=== PATIENT | female | born 1980 | race Caucasian/White ===

== ENCOUNTER 2022-02-17 07:18 | Emergency (ER) | payer BC ==
--- OUTSIDE RECORDS SUMMARY | 2022-02-17 07:22 | XMS REPORT | Continuity of Care Document ---
:[address] [facility] t Address [address] [place] [address] Care Team Providers Name Role Phone Carissa Davila MD Primary Care Physician Carissa Davila Attending Clinician Unavailable Carissa Davila Attending Clinician Unavailable Renato Steward Attending Clinician Unavailable Pepe Tello Attending Clinician Unavailable Payers Payer Name Policy Type Policy Number Effective Date Expiration Date S yannick Blue Cross C1 [id number] [facility] ([facility]) Outpatient Clinics Problems Condition Condition Condition Status Onset Resolution Last Treating Co mments Source Name Details Category Date Date Treatment Clinician Date Dyspnea on Dyspnea on Disease Active M ethodi exertion exertion 10-20 00:00: Hospita 00 l Lumbar Lumbar Disease Active [facility] stenosis stenosis 10-17 00:00: Hospita 00 l Lumbar Lumbar Disease Active [facility]i radiculopa radiculopa 08-21 thy thy 00:00: Hospita 00 l Other Other Disease Active Methodi spondylosi spondylosi 08-21 s with s with 00:00: Hospita radiculopa radiculopa 00 l thy, thy, lumbar lumbar region region [id number] History of Problem Active [facility] St (urinary Robert tract Outpati infection) ent Clinics [id number] Migraine Problem Active [facility] with aura [facility] without Robert status Outpati migrainosu ent s, not Clinics intractabl e [id number] Dysmenorrh Problem Active [facility] medical center ent Clinics Allergies, Adverse Reactions, Alerts Allergy Allergy Status Severity Reaction(s) Onset Inactive Treating Comm ents Source Name Type Date Date Clinician Lidia Propensi Active Swelling Nausea, Met hodi m ty to [address] adverse 00:00: swelling Hospita reaction 00 l s to drug Penicill Propensi Active Itching, Meth autumn ins ty to 07-10 rash, st adverse 00:00: hives Hospita reaction 00 l s to drug meloxica meloxica Active swelling [facility] m m (can [facility] - tolerate other Robert NSAIDS) [facility] Clin[facility] Family History Family Member Diagnosis Comments Start Date Stop Date Source Natural mother Heart disease [facility] mother Hypertension [facility] Natural mother Kidney disease [facility] Natural mother Lupus [facility] mother Seizures [facility] Natural mother Breast cancer [facility] Natural mother Clotting disorder Met [facility] Natural mother Diabetes [facility] Natural father Heart disease [facility] father Hypertension [facility] father Skin cancer [facility] Social History Social Habit Start Date Stop Date Quantity Comments Source History of [facility] Tobacco Use [facility] Alcohol intake 2018-06-23 2018-06-23 [facility] 00:00:00 00:00:00 non-drinker of alcohol (finding) Tobacco use and 2017-07-10 2017-07-10 Smokeless tobacco [facility] exposure 00:00:00 00:00:00 non-user Sex Assigned At [birth year] [facility] 00:00:00 00:00:00 Smoking Status Start Date Stop Date Source Never Smoker [facility] Outpatient Clinics Medications Ordered Filled Start Stop Current Ordering Indication Dosage Frequency Signature Comments Components Source Medication Medication Date Date Medication? Clinician (SIG) Name Name Oxybutynin Oxybutynin No 1{table BID Oxybutynin Chloride 5 Chloride 5 4-14 t} Chloride 5 MG MG 00:00: MG 00 Oxybutynin Oxybutynin No 1{table BID Oxybutynin Chloride 5 Chloride 5 4-14 t} Chloride 5 MG MG 00:00: MG 00 Oxybutynin Oxybutynin No 1{table BID Oxybutynin Chloride 5 Chloride 5 4-14 t} Chloride 5 MG MG 00:00: MG 00 Oxybutynin Oxybutynin No 1{table BID Oxybutynin Chloride 5 Chloride 5 4-14 t} Chloride 5 MG MG 00:00: MG 00 Macrobid Macrobid No 1{capsu BID Macrobid [facility] 100 MG 100 MG 4-06 le_with 100 MG [facility] - 00:00: _food} [facility] Macrobid Macrobid No 1{capsu BID Macrobid 100 MG 100 MG 4-06 le_with 100 MG 00:00: _food} Macrobid Macrobid No 1{capsu BID Macrobid 100 MG 100 MG 4-06 le_with 100 MG 00:00: _food} Macrobid Macrobid No 1{capsu BID Macrobid 100 MG 100 MG 4-06 le_with 100 MG 00:00: _food} Macrobid Macrobid No 1{capsu BID Macrobid 100 MG 100 MG 4-06 le_with 100 MG 00:00: _food} Medrol Medrol 2018-03 Yes Carissa as [facility] 2-05 Davila directed [facility] - 00[facility] St 00 [facility] Bactrim DS Bactrim DS 2018-03 Yes Carissa [address] 1-25 Davila [facility] - [facility] 00 [facility] SUMAtriptan Yes 100mg Take 100 M ethodi (IMITREX) 4-[address] 100 MG 12:24: mouth once Hospi ta tablet 21 as needed l for migraine. May repeat in 2 hours if unresolved . Do not exceed 200 mg in 24 hours. levocetiriz Yes 5mg QD Take 5 mg M ethodi ine (XYZAL) 4-[address] 5 MG tablet 12:24: every Hospi ta 21 evening. l As needed naproxen Yes Take by Method i sodium 4-[address] (ALEVE 12:24: Hospita ORAL) 21 l methocarbam Yes Take 1 Meth autumn ol 8-[address] (ROBAXIN-75 00:00: every 6 Hos kristina 0) 750 MG 00 hours as l tablet needed for spasms ULTRAM 50 Yes 50mg Q6H Take 50 mg Me thodi mg tablet 2-[address] 00:00: every 6 Hospita 00 (six) l hours as needed. ondansetron Yes 8mg Q8H Take 8 mg M ethodi (ZOFRAN) 8 1-[address] MG tablet 00:00: every 8 Hospi ta 00 (eight) l hours as needed for nausea or vomiting. Methocarbam Methocarbam Yes Carissa [address] ol ol Davila [facility] Systane Systane Yes Carissa not [facility] Davila defined [facility] Tramadol Tramadol Yes Carissa 1-[address] HCl HCl Davila tablets as [facility]ukes - needed [facility] Fexmid Fexmid Yes Carissa [address] Davila as needed [facility] Sumatriptan Sumatriptan Yes Carissa TK [address] Succinate Succinate Davila BID PRF Lukes - MIGRAINE [facility] Leslie Nelson Yes Carissa [address] Allergy Allergy Davila in the Amari es - 24HR 24HR evening [facility] Tylenol Tylenol Yes Carissa [address] Davila as needed [facility] Advil Advil Yes Carissa 4-[address] Davila tablets [facility] - with food St or milk as Robert [facility] Systane Systane No Systane [facility] 0.4-0.3 % 0.4-0.3 % 0.4-0.3 % [facility] Xymaryl Ramseyzal No 1{table QD Xyzal [facility] Allergy Allergy t_in_th Allergy Amari es - 24HR 5 MG 24HR 5 MG e_eveni 24HR [address] ng} [facility] AZO AZO No AZO [facility] cranberry cranberry cranberry [facility] Sumatriptan Sumatriptan No Sumatripta [facility] Succinate Succinate n [facility]ukes - 100 MG [address] 100 MG [facility] Advil 200 Advil 200 No Advil [address] mg mg mg [facility] Methocarbam Methocarbam No 1{table Methocarba [facility] ol 750 MG ol 750 MG t} mol 750 MG [facility] Systane Systane No Systane 0.4-0.3 % 0.4-0.3 % 0.4-0.3 % Xyzal Xyzal No 1{table QD Xyzal Allergy Allergy t_in_th Allergy 24HR 5 MG 24HR 5 MG e_eveni 24HR 5 MG ng} AZO AZO No AZO cranberry cranberry cranberry Sumatriptan Sumatriptan No Sumatripta Succinate Succinate n 100 MG 100 MG Succinate 100 MG Advil 200 Advil 200 No Advil 200 mg mg mg Methocarbam Methocarbam No 1{table Methocarba ol 750 MG ol 750 MG t} mol 750 MG Systane Systane No Systane 0.4-0.3 % 0.4-0.3 % 0.4-0.3 % Xyzal Xyzal No 1{table QD Xyzal Allergy Allergy t_in_th Allergy 24HR 5 MG 24HR 5 MG e_eveni 24HR 5 MG ng} AZO AZO No AZO cranberry cranberry cranberry Sumatriptan Sumatriptan No Sumatripta Succinate Succinate n 100 MG 100 MG Succinate 100 MG Advil 200 Advil 200 No Advil 200 mg mg mg Methocarbam Methocarbam No 1{table Methocarba ol 750 MG ol 750 MG t} mol 750 MG Systane Systane No Systane 0.4-0.3 % 0.4-0.3 % 0.4-0.3 % Xyzal Xyzal No 1{table QD Xyzal Allergy Allergy t_in_th Allergy 24HR 5 MG 24HR 5 MG e_eveni 24HR 5 MG ng} AZO AZO No AZO cranberry cranberry cranberry Sumatriptan Sumatriptan No Sumatripta Succinate Succinate n 100 MG 100 MG Succinate 100 MG Advil 200 Advil 200 No Advil 200 mg mg mg Methocarbam Methocarbam No 1{table Methocarba ol 750 MG ol 750 MG t} mol 750 MG Systane Systane No Systane 0.4-0.3 % 0.4-0.3 % 0.4-0.3 % Xyzal Xyzal No 1{table QD Xyzal Allergy Allergy t_in_th Allergy 24HR 5 MG 24HR 5 MG e_eveni 24HR 5 MG ng} AZO AZO No AZO cranberry cranberry cranberry Sumatriptan Sumatriptan No Sumatripta Succinate Succinate n 100 MG 100 MG Succinate 100 MG Advil 200 Advil 200 No Advil 200 mg mg mg Methocarbam Methocarbam No 1{table Methocarba ol 750 MG ol 750 MG t} mol 750 MG Immunizations Ordered Filled Immunization Date Status Comments [facility] e Immunization Name Name COVID-19 (Moderna) COVID-19 (Moderna) 2020-04-[address] [facility] 10[facility]32[facility] COVID-19 (Moderna) COVID-19 (Moderna) 2020-04-[address] [facility] 10:32:00 [facility] COVID-19 (Moderna) COVID-19 (Moderna) 2020-04-[address] [facility] 10:32:00 [facility] COVID-19 (Moderna) COVID-19 (Moderna) 2020-04-[address] [facility] 10:32:00 [facility] COVID-19 (Moderna) COVID-19 (Moderna) 2020-04-[address] [facility] 10:32:00 [facility] COVID-19 (Moderna) COVID-19 (Moderna) 2020-03-[address] [facility] 10[facility]31[facility]00 [facility] COVID-19 (Moderna) COVID-19 (Moderna) 2020-03-[address] [facility] 10:31:00 [facility] COVID-19 (Moderna) COVID-19 (Moderna) 2020-03-[address] [facility] 10:31:00 [facility] COVID-19 (Moderna) COVID-19 (Moderna) 2020-03-[address] [facility] 10:31:00 [facility] COVID-19 (Moderna) COVID-19 (Moderna) 2020-03-[address] [facility] 10:31:00 [facility] Flu Quadrivalent PF Flu Quadrivalent PF 2018-12-[address] [facility] 0.5 ml IM 0.5 ml IM 10:16:00 [facility] Flu Quadrivalent PF Flu Quadrivalent PF 2018-12-[address] [facility] 0.5 ml IM 0.5 ml IM 10:16:00 [facility] Flu Quadrivalent PF Flu Quadrivalent PF 2018-12-[address] [facility] 0.5 ml IM 0.5 ml IM 10:16:00 [facility] Flu Quadrivalent PF Flu Quadrivalent PF 2018-12-[address] [facility] 0.5 ml IM 0.5 ml IM 10:16:00 [facility] Flu Quadrivalent PF Flu Quadrivalent PF 2018-12-[address] [facility] 0.5 ml IM 0.5 ml IM 10:16:00 [facility] Flu Quadrivalent PF Flu Quadrivalent PF 2017-12-[address] [facility] 0.5 ml IM 0.5 ml IM 07:52:00 [facility] Flu Quadrivalent PF Flu Quadrivalent PF 2017-12-[address] [facility] 0.5 ml IM 0.5 ml IM 07:52:00 [facility] Flu Quadrivalent PF Flu Quadrivalent PF 2017-12-[address] [facility] 0.5 ml IM 0.5 ml IM 07:52:00 [facility] Flu Quadrivalent PF Flu Quadrivalent PF 2017-12-[address] [facility] 0.5 ml IM 0.5 ml IM 07:52:00 [facility] Flu Quadrivalent PF Flu Quadrivalent PF 2017-12-[address] [facility] 0.5 ml IM 0.5 ml IM 07:52:00 [facility] Depo-Medrol Depo-Medrol 2017-03-[address] [facility] (METHYLPREDnisolone (METHYLPREDnisolone 10:31:00 [facility] ) 80mg ) 80mg Clinics Depo-Medrol Depo-Medrol 2017-03-[address] [facility] (METHYLPREDnisolone (METHYLPREDnisolone 10:31:00 [facility] ) 80mg ) 80mg Clinics Depo-Medrol Depo-Medrol 2017-03-[address] [facility] (METHYLPREDnisolone (METHYLPREDnisolone 10:31:00 [facility] ) 80mg ) 80mg Clinics Depo-Medrol Depo-Medrol 2017-03-[address] [facility] (METHYLPREDnisolone (METHYLPREDnisolone 10:31:00 [facility] ) 80mg ) 80mg Clinics Depo-Medrol Depo-Medrol 2017-03-09 [address] [facility] (METHYLPREDnisolone (METHYLPREDnisolone 10:31:00 [facility] ) 80mg ) 80mg Clinics Vital Signs Vital Name Observation Time Observation Value Comments Source weight 2020-06-21 10:05:00 162.0 [lb_av] [facility] height 2020-06-21 10:05:00 69.0 [in_i] [facility] bmi 2020-06-21 10:05:00 23.92 kg/m2 [facility] heart rate 2020-06-21 10:05:00 88 /min [facility] temperature 2020-06-21 10:05:00 97.8 [degF] [facility] oximetry 2020-06-21 10:05:00 98 % [facility] respiratory rate 2020-06-21 10:05:00 18 /min [facility] blood pressure 2020-06-21 10:05:00 123 mm[Hg] [facility] systolic [facility] blood pressure 2020-06-21 10:05:00 88 mm[Hg] [facility] diastolic [facility] Procedures This patient has no known procedures. Plan of Care Planned Activity Planned Date Details Comments Source Future Scheduled 2022-01-21 [facility]ITIS [facility] 00:25:52 VACCINES (1 of 3 - 3-dose series) [code = HEPATITIS B VACCINES (1 of 3 - 3-dose series)] Future Scheduled 2022-01-21 COVID-19 [facility] Test 00:25:52 (#1) [code = COVID-19 VACCINE (#1)] Future Scheduled 2022-01-21 Screening for [facility] Test 00:25:52 malignant neoplasm of cervix (procedure) [code = 684305200] Future Scheduled 2022-01-21 BREAST CANCER [facility] Test 00:25:52 SCREENING [code = BREAST CANCER SCREENING] Future Scheduled 2022-01-21 INFLUENZA VACCINE [facility] Test 00:25:52 [code = INFLUENZA VACCINE] Encounters Start End Encounter Admission Attending Care Care Encounter Source Date/Time Date/Time Type Type Clinicians Facility Department ID 2021-04-12 Outpatient MIGNON Davila [facility] [id number] 12:48:16 Carissa [id number] [facility] 2021-04-12 Outpatient MIGNON Davila [facility] [id number] 11:17:49 Carissa [id number] [facility] 2020-07-15 2020-07-15 (TEL) STLS[facility]EL [facility] [id number] [facility] 00:[facility] 00:00:00 [facility] 2020-06-29 2020-06-29 (WEB) [facility] [id number] [facility] 00:[facility] 00:00:00 [facility] 2020-06-28 2020-06-28 (Lab) Lab [facility] [id number] [facility] 00[facility]00 visit [facility] 2020-06-27 2020-06-27 (TEL) STLS[facility]EL [facility] [id number] [facility] 00:[facility] 00:00:00 [facility] 2020-06-21 2020-06-21 Office [facility] [id number] [facility] 00:[facility]00 00:00:00 Visit, Andreas broussard - Pt., Level [facility] 3 [facility] ent Clinics 2019-07-03 2019-07-03 Outpatient [facility] [id number] 10:25:00 10:25:00 [facility] Clinics 2019-07-01 2019-07-01 Outpatient [facility] [id number] 08:10:00 08:10:00 [facility] Out[facility] Clinics 2019-06-30 2019-06-30 Outpatient [facility] [id number] 10:20:00 10:20:00 [facility] Outpat[facility] ent Clinics 2019-06-30 2019-06-30 Outpatient [facility] [id number] 08:17:00 08:17:00 [facility] 2019-06-29 2019-06-29 Outpatient [facility] [id number] 20:34:00 20:34:00 Family [facility] 2019-06-29 2019-06-29 Outpatient [facility] [id number] 10:30:00 10:30:00 [facility] 2019-06-29 2019-06-29 Outpatient [facility] [id number] 08:23:00 08:23:00 [facility] Clin[facility] 2018-05-05 2018-05-05 Outpatient Haily Davila [facility] [id number] 14:07:00 14:08:00 Carissa [id number] [facility] 2017-05-29 2017-05-29 Outpatient Haily Bin [facility] [id number] 08:03:00 08:04:00 Renato [id number] [facility] 2017-04-30 2017-04-30 Outpatient Haily Davila [facility] [id number] 08:38:00 08:39:00 Car[id number] [facility] 2017-04-18 2017-04-18 Emergency ER Omer [facility] [id number] 08:28:00 11:00:00 Pe[facility] -[id number] [facility] Results Test Description Test Time Test Comments Results Result Comments Source Hematology 2017-04-18 11:16:00 Test Item Value Reference Range Interpretation Comme nts Hematology (test code = WBCT) 3.3 thou/uL 4.8-10.8 L Hematology (test code = RBCT) 4.71 mill/uL 4.20-5.40 N Hematology (test code = HGBT) 14.6 g/dL 12.0-16.0 N Hematology (test code = HCTT) 43.8 % 36.0-47.0 N Hematology (test code = MCV) 93.0 fl 81.0-99.0 N Hematology (test code = MCH) 31.1 pg 27.0-31.0 H Hematology (test code = MCHC) 33.5 g/dL 32.0-36.0 N Hematology (test code = RDW) 12.1 % 11.5-14.5 N Hematology (test code = PLTT) 118 thou/uL 130-400 L Hematology (test code = MPV) 9.1 fL 7.4-10.4 N Hematology (test code = %NEUT) 65.9 % 42.0-75.0 N Hematology (test code = %LYMPH) 23.8 % 21.0-51.0 N Hematology (test code = %MONO) 9.0 % 0.0-10.0 N Hematology (test code = %EOS) 0.8 % 0.0-10.0 N Hematology (test code = %BASO) 0.5 % 0.0-1.0 N Hematology (test code = NEUT#) 2.2 thou/uL 1.40-6.50 N Hematology (test code = LYMPH#) 0.8 thou/uL 1.20-3.40 L Hematology (test code = MONO#) 0.3 thou/uL 0.11-0.59 N Hematology (test code = EOS#) 0.0 thou/uL 0.0-0.7 N Hematology (test code = BASO#) 0.0 thou/uL 0.0-0.2 N Hematology (test code = PCOMMENT) Appears Decreased A Hematology (test code = MC) Normal [id number] 09:39:00 Test Item Value Reference Range Interpretation Comments Chemistry (test code = LIP) 12 U/L 8-78 N [id number] 09:29:00 Test Item Value Reference Range Interpretation Comments Urinalysis (test Negative Negative Method of s ensitivity- code = BHCGUT) INDETERMINANT : results should be repea dominick after 48-72 hrs POSIT CARLOS: results may be detected as early as 1 day after the first missed period A dilute urine specimen may no t contain representativel evels of hCG.If pregnanc y is still suspected, a fi rst morning urinespecimen O R a random blood specimen should be obtainedfrom th e patient 48-72 hours lat er and re-tested. Urinalysis (test 1.011 1.002-1.036 N code = PREGUSG) [id number] 09:28:00 Test Item Value Reference Range Interpretation Comments Urinalysis (test code = UACLR) YELLOW Yellow Urinalysis (test code = UACLY) CLEAR Clear Urinalysis (test code = SPGR) 1.011 1.002-1.036 N Urinalysis (test code = LORNA) 6.0 5.0-9.0 N Urinalysis (test code = UALEU) Negative Negative Urinalysis (test code = UANIT) Negative Negative Urinalysis (test code = Negative mg/dL Neg-Trace PROUADIP) Urinalysis (test code = GLUCU) Negative mg/dL Negative Urinalysis (test code = KETU) Trace mg/dL Negative A Urinalysis (test code = 0.2 mg/dL 0.2-1.0 UAUROB) Urinalysis (test code = UABIL) Negative Negative Urinalysis (test code = UABLD) Negative Negative Urine Source: Urine Clean [id number] 09:21:00 Test Item Value Reference Range Interpretation Comments Chemistry (test code 138 mmol/L 136-145 N = NA-T) Chemistry (test code 4.1 mmol/L 3.5-5.1 N = K-T) Chemistry (test code 105 mmol/L 98-107 N = CL) Chemistry (test code 23 mmol/L 22-29 N = CO2) Chemistry (test code 14 mmol/L 10-20 N = ANGP) Chemistry (test code 9 mg/dL 7.0-18.7 N = BUN) Chemistry (test code 0.76 mg/dL 0.6-1.1 N = CREATT) Chemistry (test code 86 Referen ce Range for = EGFRMDRD) Estimated GFR: Greater than 90 mL/min/ 1.73 m2NOTE:The MDRD equation has no t been validated for u se with theelderly (ove r 70 years of age), women, patients with serious comorbi d condition or pe rsons with extremes o fbody size, muscle ma ss, or nutritional sta tus. Chemistry (test code 96 mg/dL 70-105 N = GLU-T) Chemistry (test code 9.7 mg/dL 7.8-10.44 N = CA) Chemistry (test code 1.4 mg/dL 0.2-1.2 H = TBILI) Chemistry (test code 7.4 g/dL 6.0-8.3 N = TP) Chemistry (test code 4.7 g/dL 3.5-5.0 N = ALB) Chemistry (test code 2.7 g/dL 2.4-3.5 N = GLOB) Chemistry (test code 1.7 g/dL 1.2-2.2 N = AG) Chemistry (test code 55 U/L 40-150 N = ALP) Chemistry (test code 18 U/L 5-34 N = AST) Chemistry (test code 19 U/L 8-55 N = ALT)
[2022-02-17] MEDS ORDERED: LIDOCAINE 1% MPF 5 ML VIAL ONE (07:47)
[2022-02-17] MEDS ORDERED: BUPIVACAINE 0.5% PF 10 ML VIAL ONE ×2 (07:47→07:50)
--- NOTE | 2022-02-17 08:31 | RAD REPORT ---
EXAM DESCRIPTION: RAD - Foot Left 3 View - 02/17/2022 7:53 am CLINICAL HISTORY: Left Foot pain FINDINGS: Transverse lucency proximal aspect of the fifth proximal phalanx equivocal for a nondispla facundo fracture. Mild lateral subluxation of the fourth and fifth middle phalanges could be acute or chronic and shoul d be correlated clinically
--- NOTE | 2022-02-17 08:47 | ER ---
Nurse's Notes [facility] Name: Arlet Hull Age: 42 yrs Sex: Female : 1980 Arrival Date: 02/17/2022 Time: 07:21 Bed 4 Private MD: Diagnosis: Fracture of proximal phalanx of lesser toe(s)- Presentation: 02/17 07:44 Chief complaint: Patient states: "I was on the way down the stairs this AM and fell jd3 down hitting my left foot pretty heard on the bars that line the spiral staircase. I made it to the restroom, but as soon as I stood up I passed out.". Coronavirus screen: At this time, the client does not indicate any symptoms associated with coronavirus-19. Ebola Screen: No symptoms or risks identified at this time. Initial Sepsis Screen: Does the patient meet any 2 criteria? No. Patient's initial sepsis screen is negative. Does the patient have a suspected source of infection? No. Patient's initial sepsis screen is negative. Risk Assessment: Do you want to hurt yourself or someone else? Patient reports no desire to harm self or others. Onset of symptoms was February 17, 2022. 07:44 Method Of Arrival: Wheelchair jd3 07:44 Acuity: CONTRERAS 3 jd3 Triage Assessment: 07:53 General: Appears in no apparent distress. comfortable, Behavior is calm, cooperative, jd3 appropriate for age. Pain: Complains of pain in left foot Aggravated by increased activity, weight bearing. Derm: Bruising that is on left foot. 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 - Social history:: Smoking status: Patient denies any tobacco usage or history of. - Family history:: not pertinent. Screenin:58 Abuse screen: Denies threats or abuse. Nutritional screening: No deficits noted. mb9 Tuberculosis screening: No symptoms or risk factors identified. Fall Risk None identified. Assessment: 07:56 General: Appears in no apparent distress. comfortable, Behavior is calm, cooperative, mb9 appropriate for age. Pain: Complains of pain in left foot and left second toe Pain does not radiate. Pain currently is 4 out of 10 on a pain scale. Neuro: Carranza Agitation-Sedation Scale (RASS): 0 - Alert and Calm Level of Consciousness is awake, alert, obeys commands, Oriented to person, place, time, situation, Appropriate for age. Cardiovascular: Heart tones S1 S2 present Rhythm is regular. Respiratory: Airway is patent Respiratory effort is even, unlabored, Respiratory pattern is regular, symmetrical, Breath sounds are clear bilaterally. GI: Abdomen is flat. : No signs and/or symptoms were reported regarding the genitourinary system. EENT: No signs and/or symptoms were reported regarding the EENT system. Derm: Skin is pink, warm \\T\\ dry. Musculoskeletal: Range of motion: limited in left foot and left second toe Swelling present in left second toe. 09:15 Reassessment: Patient denies pain at this time. Patient states feeling better. Patient mb9 states symptoms have improved. Vital Signs: 07:46 BP 142 / 95; Pulse 61; Resp 16 S; Temp 98.4(TE); Pulse Ox 100% on R/A; Weight 72.57 kg j (R); Height 5 ft. 8 in. (172.72 cm) (R); Pain 3/10; 09:15 BP 132 / 79; Pulse 65; Resp 18; Pulse Ox 100% ; Pain 0/10; mb9 07:46 Body Mass Index 24.33 (72.57 kg, 172.72 cm) [facility] ED Course: 07:21 Patient arrived in ED. mr 07:32 Daljit Rivera MD is Attending Physician. torri 07:34 Zonia Fung RN is Primary Nurse. mb9 07:46 Triage completed. jd3 07:46 Arm band placed on. jd3 07:46 Bed in low position. Call light in reach. Side rails up X 1. Client placed on mb9 continuous cardiac and pulse oximetry monitoring. NIBP monitoring applied. 07:55 Foot Left 3 View XRAY In Process Unspecified. EDMS 08:09 EKG done, by ED staff, reviewed by Daljit Rivera MD. mb9 08:25 Assist provider with nerve block (digital) of left fourth toe Set up for procedure. mb9 Performed by Daljit Rivera MD Patient tolerated well. 09:21 Foot Left 3 View XRAY In Process Unspecified. EDMS Administered Medications: 07:49 Not Given (Duplicate Order): Bupivacaine-Epinephrine (0.25 %) 5 ml Infiltration once; torri to bedside 08:28 Drug: Lidocaine (1 %) 5 ml Volume: 5 ml; Route: Infiltration; mb9 08:28 Drug: Bupivacaine (0.5 %) 5 ml Volume: 10 ml; Route: Infiltration; mb9 Medication: 07:58 VIS not applicable for this client. mb9 Outcome: 08:46 Discharge ordered by . [facility] 09:16 Patient left the ED. mb9 Signatures: Dispatcher [employer] EDDaljit Zuñiga MD MD cha Rivera, Mary mr DaviesJung RN RN kenny Fung, Zonia Baca, RN RN mb9
--- NOTE | 2022-02-17 08:47 | EDPHYS ---
Physician Documentation [facility] Name: Arlet Hull Age: 42 yrs Sex: Female : 1980 Arrival Date: 02/17/2022 Time: 07:21 Bed 4 Private MD: ED Physician Daljit Rivera HPI: 02/17 07:40 This 42 yrs old Female presents to ER via Unassigned with complaints of Fall torri Injury, Passed Out Prior To Arrival, Toe Injury. 07:40 Details of fall: The patient fell from a height, down approximately 5 stairs. Onset: torri The symptoms/episode began/occurred just prior to arrival. Associated injuries: The patient sustained left second toe, decreased range of motion. Severity of symptoms: At their worst the symptoms were mild, in the emergency department the symptoms are unchanged. The patient has not experienced similar symptoms in the past. 08:02 Associated injuries: The patient sustained decreased range of motion, obvious fracture, torri painful injury. BRUSHER HAND: 07:46 LMP 02/17/2022 jd3 Historical: - Allergies: 07:46 Sulfa (Sulfonamide Antibiotics); jd3 - Home Meds: 07:46 cyclosporine 100 mg Oral cap 100 mg twice a day [Active]; vitamin A 10,000 unit Oral jd3 tab daily [Active]; Restasis ophthalmic (eye) twice a day [Active]; - PMHx: 07:46 raynauds; schroders disease; jd3 - PSHx: 07:46 lamenectomy L2-3; lumpectomy left breast; uterine ablasion; jd3 - Immunization history:: Adult Immunizations up to date, Client reports receiving the 2nd dose of the Covid vaccine. - Social history:: Smoking status: Patient denies any tobacco usage or history of. - Family history:: not pertinent. ROS: 07:40 Constitutional: Negative for fever, chills, and weight loss, Eyes: Negative for injury, torri pain, redness, and discharge, ENT: Negative for injury, pain, and discharge, Neck: Negative for injury, pain, and swelling, Cardiovascular: Negative for chest pain, palpitations, and edema, Respiratory: Negative for shortness of breath, cough, wheezing, and pleuritic chest pain, Abdomen/GI: Negative for abdominal pain, nausea, vomiting, diarrhea, and constipation, Back: Negative for injury and pain, : Negative for injury, bleeding, discharge, and swelling, Skin: Negative for injury, rash, and discoloration, Neuro: Negative for headache, weakness, numbness, tingling, and seizure, Psych: Negative for depression, anxiety, suicide ideation, homicidal ideation, and hallucinations, Allergy/Immunology: Negative for hives, rash, and allergies, Endocrine: Negative for neck swelling, polydipsia, polyuria, polyphagia, and marked weight changes, Hematologic/Lymphatic: Negative for swollen nodes, abnormal bleeding, and unusual bruising. 08:02 MS/extremity: Positive for decreased range of motion, pain, swelling, of the left torri fourth toe. Exam: 07:40 Constitutional: This is a well developed, well nourished patient who is awake, alert, torri and in no acute distress. Head/Face: Normocephalic, atraumatic. Eyes: Pupils equal round and reactive to light, extra-ocular motions intact. Lids and lashes normal. Conjunctiva and sclera are non-icteric and not injected. Cornea within normal limits. Periorbital areas with no swelling, redness, or edema. ENT: Nares patent. No nasal discharge, no septal abnormalities noted. Tympanic membranes are normal and external auditory canals are clear. Oropharynx with no redness, swelling, or masses, exudates, or evidence of obstruction, uvula midline. Mucous membranes moist. Neck: Trachea midline, no thyromegaly or masses palpated, and no cervical lymphadenopathy. Supple, full range of motion without nuchal rigidity, or vertebral point tenderness. No Meningismus. Chest/axilla: Normal chest wall appearance and motion. Nontender with no deformity. No lesions are appreciated. Cardiovascular: Regular rate and rhythm with a normal S1 and S2. No gallops, murmurs, or rubs. Normal PMI, no JVD. No pulse deficits. Respiratory: Lungs have equal breath sounds bilaterally, clear to auscultation and percussion. No rales, rhonchi or wheezes noted. No increased work of breathing, no retractions or nasal flaring. Abdomen/GI: Soft, non-tender, with normal bowel sounds. No distension or tympany. No guarding or rebound. No evidence of tenderness throughout. Back: No spinal tenderness. No costovertebral tenderness. Full range of motion. Skin: Warm, dry with normal turgor. Normal color with no rashes, no lesions, and no evidence of cellulitis. Neuro: Awake and alert, GCS 15, oriented to person, place, time, and situation. Cranial nerves II-XII grossly intact. Motor strength 5/5 in all extremities. Sensory grossly intact. Cerebellar exam normal. Normal gait. Psych: Awake, alert, with orientation to person, place and time. Behavior, mood, and affect are within normal limits. 07:40 Musculoskeletal/extremity: ROM: limited active range of motion, limited passive range of motion, limited active range of motion due to pain, limited passive range of motion due to pain, Circulation is intact in all extremities. Sensation intact. Compartment Syndrome exam of affected extremity: 08:08 ECG was reviewed by the Attending Physician. [facility] Vital Signs: 07:46 BP 142 / 95; Pulse 61; Resp 16 S; Temp 98.4(TE); Pulse Ox 100% on R/A; Weight 72.57 kg jd3 (R); Height 5 ft. 8 in. (172.72 cm) (R); Pain 3/10; 09:15 BP 132 / 79; Pulse 65; Resp 18; Pulse Ox 100% ; Pain 0/10; mb9 07:46 Body Mass Index 24.33 (72.57 kg, 172.72 cm) jd3 Procedures: 07:49 Reduction: Patient tolerated DIGIT BLOCK 1 PERCENT AND 0.5 PERCENT BUPIVICAINE. LEFT torri SECOND TOE. MDM: 07:32 Patient medically screened. [facility] 07:49 Differential diagnosis: contusion, fracture, multiple trauma, sprain. Data reviewed: [facility] vital signs, nurses notes. Data interpreted: cafeteria monitor: rate is 82 beats/min, rhythm is regular, Pulse oximetry: on room air is 99 %. Counseling: I had a detailed discussion with the patient and/or guardian regarding: the historical points, exam findings, and any diagnostic results supporting the discharge/admit diagnosis, radiology results, the need for outpatient follow up, for definitive care, a orthopedic surgeon. 02/17 07:40 Order name: Foot Left 3 View XRAY; Complete Time: 08:[address] [facility] 02/17 08:46 Order name: Foot Left 3 View XRAY 02/17 07:52 Order name: EKG; Complete Time: 07:[address] [facility] 02/17 07:40 Order name: Ice pack; Complete Time: 07:[address] [facility] 02/17 07:52 Order name: EKG - Nurse/Tech; Complete Time: 08:[address] [facility] 02/17 08:45 Order name: Post-op Orthopedic Shoe; Complete Time: 09:[address] [facility] 02/17 08:45 Order name: Misc. Order: GABRIELE TAPE 3-4-5; Complete Time: 09:[address] [facility] EC:08 Rate is 61 beats/min. Rhythm is regular. QRS Brickeys is Normal. NM interval is normal. QRS torri interval is normal. QT interval is normal. No Q waves. T waves are Normal. No ST changes noted. Clinical impression: NSR w/ Non-specific ST/T Changes and No evidence of ischemia. Interpreted by me. Reviewed by me. Administered Medications: 07:49 Not Given (Duplicate Order): Bupivacaine-Epinephrine (0.25 %) 5 ml Infiltration once; torri to bedside 08:28 Drug: Lidocaine (1 %) 5 ml Volume: 5 ml; Route: Infiltration; mb9 08:28 Drug: Bupivacaine (0.5 %) 5 ml Volume: 10 ml; Route: Infiltration; mb9 Disposition Summary: 02/17/22 08:46 Discharge Ordered Location: Home torri Problem: new torri Symptoms: have improved torri Condition: Stable torri Diagnosis - Fracture of proximal phalanx of lesser toe(s) - 4TH,5TH torri Followup: torri - With: Private Physician - When: 2 - 3 days - Reason: Recheck today's complaints, Continuance of care, Re-evaluation by your physician Discharge Instructions: - Discharge Summary Sheet torri - Near-Syncope torri - Toe Fracture torri - Toe Fracture, [id number] torri - Near-Syncope, [id number] torri Forms: - Medication Reconciliation Form torri - Thank You Letter torri - Antibiotic Education torri - Prescription Opioid Use torri - Work release form eb Prescriptions: - Ibuprofen 600 mg Oral Tablet - take 1 tablet by ORAL route every 6 hours As needed take with food; 20 tablet; torri Refills: 0, Product Selection Permitted - Tylenol-Codeine #3 300 mg-30 mg Oral - take 2 tablet by ORAL route every 6 hours; 20 tablet; Refills: 0, Product torri Selection Permitted Signatures: Dispatcher [employer] Daljit Cheema MD MD cha Davies, Jonathon RN RN jd3 Zonia Fung RN RN mb9 Corrections: (The following items were deleted from the chart) 08:03 07:40 MS/extremity: Positive for injury or acute deformity, decreased range of motion, torri deformity, pain, of the left second toe, torri
[2022-02-17 09:21] VITALS: TEMP 98.4; O2SAT 100
[2022-02-17 09:22] VITALS: BP 132/79
--- NOTE | 2022-02-17 10:47 | RAD REPORT ---
EXAM DESCRIPTION: RAD - Foot Left 3 View - 02/17/2022 9:19 am CLINICAL HISTORY: Left Foot pain FINDINGS: Good alignment of the fourth and fifth phalanges. On one view there is a transverse lucency fourth proximal phalanx. This could represent nondisplaced fracture versus prominent trabecula
--- NOTE | 2022-02-19 13:52 | EKG ---
Test Date: 2022-02-17 Test Time: 08:06:46 Jointer Operator: MB MEASUREMENT RESULTS: Intervals: Rate: 61 ME: 132 QRSD: 82 QT: 402 QTc: 404 [place]: P: 81 ME: 132 QRS: 80 T: 78 INTERPRETIVE STATEMENTS: Normal sinus rhythm Normal ECG No previous ECG available for comparison Electronically Signed On 02-19-22 13:50:04 PACKAGING CLERK by Rolando Luna
== END 2022-02-17 09:16 | disposition home or self-care (01) ==
LOC: ER 07:18
DX: S92.512A Displaced fracture of proximal phalanx of left lesser toe(s), initial encounter for closed fracture (principal); Z88.2 Allergy status to sulfonamides
CPT/HCPCS: 93005; 73630 ×2; 64450; 99284; J2001